=== PATIENT | male | born 1995 | race Caucasian/White ===

== ENCOUNTER 2021-10-02 18:56 | Emergency (ER) | payer BC ==
[2021-10-02] MEDS ORDERED: Lidocaine 1% PF 5 ML VIAL ONE (19:41)
[2021-10-02] MEDS ORDERED: Bupivacaine PF 0.5% 30 ML VIAL ONE (19:41)
[2021-10-02] MEDS ORDERED: Ketorolac Tromethamine 30 MG/ML VIAL ONE (19:57)
== END 2021-10-02 20:12 | disposition home or self-care (01) ==
LOC: CSHERS 18:56
DX: K02.9 Dental caries, unspecified (principal)
CPT/HCPCS: 41800; 96374; J1885; S0020

== ENCOUNTER 2023-02-24 10:39 | Emergency (ER) | payer BC ==
[2023-02-24] MEDS ORDERED: Fluorescein Opthalmic Strip ONE (11:34)
[2023-02-24] MEDS ORDERED: Proparacaine 0.5% Opth 15 ML BOT ONE (11:35)
== END 2023-02-24 12:00 | disposition home or self-care (01) ==
LOC: CSHERS 10:39
DX: H10.9 Unspecified conjunctivitis (principal)
CPT/HCPCS: 99283

== ENCOUNTER 2023-09-15 21:58 | Emergency (ER) | payer BC | END 2023-09-15 23:09 | disposition home or self-care (01) | LOC: CSHERS 21:58 | DX: T63.463A Toxic effect of venom of wasps, assault, initial encounter (principal); F17.220 Nicotine dependence, chewing tobacco, uncomplicated | CPT/HCPCS: 99282 ==

== ENCOUNTER 2024-10-29 22:38 | Emergency (ER) | payer BC ==
[2024-10-30] MEDS ORDERED: Ondansetron PF 4 MG/2 ML Vial ONE (01:00)
[2024-10-30] MEDS ORDERED: Ketorolac Tromethamine 30 MG (1 mL) VIAL ONE (01:02)
== END 2024-10-30 01:43 | disposition home or self-care (01) ==
LOC: CSHERS 22:38
DX: K04.7 Periapical abscess without sinus (principal); F17.220 Nicotine dependence, chewing tobacco, uncomplicated
CPT/HCPCS: 96374; 96375; J1885; J2270; J2405